=== PATIENT | female | born 1970 | race Hispanic/Latino ===

== ENCOUNTER 2016-10-13 15:35 | Emergency (ER) | payer SELFPAY ==
[2016-10-13] MEDS ORDERED: IBUPROFEN 600 MG TAB PO ONE (16:22)
--- NOTE | 2016-10-13 17:19 | EDPHY ---
H & P Smoking Status: Never smoked Time Seen by Provider: 10/13/16 16:30 HPI/ROS: CHIEF COMPLAINT: right facial swelling HISTORY OF PRESENT ILLNESS: 46-year-old female presents emergency department complaining increased right-sided facial swelling. Patient was seen by a dentist yesterday and prescribed 10 day course of amoxicillin prior to her appointment that is made for a tooth extraction. Patient developed pain in this right upper molar 1 week ago. Patient was prescribed amoxicillin 3 times a day, she took 2 doses yesterday and has had to today so far. She denies fevers or chills, reports no pain. She is concerned as she woke up this morning and had mild swelling to the right side of her face. Patient denies difficulty opening her mouth. No pain into her neck, no sore throat, no chest pain or shortness of breath. (Renée Santiago) Physical Exam: General: Alert, nontoxic. ENT: Tympanic membranes clear, external auditory canal, external ear and surrounding soft tissue including over the mastoid unremarkable. Nasopharynx is not injected, there is no rhinorrhea. Oropharynx without erythema, poor dental hygiene, no dental abscess. There is no exudate. No tonsillar hypertrophy. No asymmetry. The uvula is midline. No elevation of tongue. There is no hoarseness. No drooling, patient has good control of their oral secretions. No trismus. No stridor. Cardiac: Regular rate and rhythm. Respiratory: Lungs clear to auscultation bilaterally. Neurological: no meningismus. Skin: No rashes. (Renée Santiago) Constitutional: Initial Vital Signs Temperature (C) 36.9 C 10/13/16 15:43 Heart Rate 66 10/13/16 15:43 Respiratory Rate 16 10/13/16 15:43 Blood Pressure 119/75 10/13/16 15:43 O2 Sat (%) 97 10/13/16 15:43 O2 Delivery Mode Room Air Allergies/Adverse Reactions: No Known Allergies Allergy (Unverified 10/13/16 15:41) Home Medications: Medication Instructions Recorded AMOXICILLIN 10/13/16 MDM/Departure - MDM Medications Given: Discontinued Medications Ibuprofen (Motrin) 600 mg PO EDNOW ONE Stop: 10/13/16 16:23 Last Admin: 10/13/16 16:23 Dose: 600 mg ED Course/Re-evaluation: 46-year-old female with known dental abscess presents with facial swelling. She started on amoxicillin yesterday by her dentist and has an appointment to get this tooth removed. There is no evidence of orbital or periorbital cellulitis, mild right-sided facial swelling, no obvious abscess that can be drained. The patient has no fevers, has no pain. She is instructed to finish her antibiotics, take ibuprofen, warm compresses and I have given her strict return precautions for worsening symptoms. (Renée Santiago) The patient was evaluated and managed by the Physician Mechanical Systems Designer/ Nurse Practitioner. My co-signature indicates that I have reviewed this chart and I agree with the findings and plan of care as documented. I am the secondary supervising physician. (Karishma Frey) Differential Diagnosis: Diagnosis considered but not limited to dental abscess, orbital cellulitis, preseptal cellulitis (Renée Santiago) - Depart Disposition: Home, Routine, Self-Care Clinical Impression: Dental abscess Condition: Good Instructions: Dental Abscess (ED) Additional Instructions: Continue taking your antibiotics as prescribed. Take 600 mg of ibuprofen every 8 hours with food for 5 days. Warm compresses to your face 5 times a day for 5 minutes. Return to the emergency department for worsening swelling, fevers, vomiting, new symptoms or concerns. Follow-up with your dentist as scheduled. Continue con lyman antibiotico recetado. TOme 600 mg de ibuprofen cada 8 horas con comida por 5 mitchell. Parches calientitos en lyman jaelyn 5 veces al jorge por 5 minutos. Regrese a la jw de emergencia si empeora la inchazon, fiebres, vomito, nuevos sintomas o preocupaciones. Kem [address] de seguimiento con lyman dentista. Referrals: NONE *PRIMARY CARE P,. [Primary Care Provider] - As per Instructions Print Language: Albanian
[2016-10-13 17:47] VITALS: BP 145/78; PULSE 81; RESP 18; TEMP 97.7; O2SAT 98
== END 2016-10-13 17:47 | disposition home or self-care (01) ==
DX: K04.7 Periapical abscess without sinus (principal)

== ENCOUNTER 2017-10-31 01:02 | Emergency (ER) | payer SELFPAY ==
--- NOTE | 2017-10-31 01:14 | EDPHY ---
H & P Stated Complaint: neck pain x 2 days Time Seen by Provider: 10/31/17 01:14 HPI/ROS: HPI CHIEF COMPLAINT: Neck pain. HISTORY OF PRESENT ILLNESS: 47-year-old female, very pleasant, no significant medical history she presents emergency room with neck pain. She has had this been present for 2 days. The pain is located at the base of her occiput. It is worse when she turns her head to the left. States it feels very tense and tight. She denies any recent injury or trauma. Denies neck manipulation. Denies headache. The pain is reproducible on exam specially when you touch the base of her occiput at the how high C-spine region. Also worse when she turns her head to the left better when she turns her head to the right. No focal numbness or tingling no arm weakness, normal barker peeler strength. Denies trauma. No fever. Denies stiff neck. Denies headache. She does state that she had this about 2 weeks ago went saw her primary care doctor was given some kind of medication helps with stress that helped with her neck discomfort. Additionally she has been taking ibuprofen she took a dose this morning it helps briefly for few hours and then the discomfort returns. Denies any chest pain or shortness of breath denies pleuritic pain. Past Medical History: Denies medical history Past Surgical History: Denies surgical history Social History: Denies daily use of drugs alcohol tobacco. Family History: Noncontributory ROS REVIEW OF SYSTEMS: A comprehensive 10 point review of systems is otherwise negative aside from elements mentioned in the history of present illness. Exam Constitutional triage nursing summary reviewed, vital signs reviewed, awake/ alert. Eyes normal conjunctivae and sclera, EOMI, PERRLA. HENT neck exam: No midline cervical spine pain or step-offs, mild tender palpation at the base of the occiput paravertebral of the high C-spine, additionally with range of motion of the head to the left active range of motion it causes her discomfort, with active range of motion to the right LEs discomfort, normal barker peeler strength, no arm weakness, no referred pain, no numbness or tingling, moist mucus membranes, no epistaxis, neck supple/ no meningismus, no raccoon eyes. Respiratory clear to auscultation bilaterally, normal breath sounds, no respiratory distress, no wheezing. Cardiovascular rate normal, regular rhythm, no murmur, no edema, distal pulses normal. Gastrointestinal soft, non-tender, no rebound, no guarding, normal bowel sounds, no distension, no pulsatile mass. Genitourinary no CVA tenderness. Musculoskeletal no midline vertebral tenderness, full range of motion, no calf swelling, no tenderness of extremities, no meningismus, good pulses, neurovascularly intact. Skin pink, warm, & dry, no rash, skin atraumatic. Neurologic awake, alert and oriented x 3, AAOx3, moves all 4 extremities equally, motor intact, sensory intact, CN II-XII intact, normal cerebellar, normal vision, normal speech. Psychiatric normal mood/affect. Heme/Lymph/Immune no lymphadenopathy. Differential Diagnosis: Includes but is not limited to in a particular order cervical strain, torticollis, muscle spasm, disc herniation, annular tear, degenerative joint disease, doubt meningitis given history and physical exam review of systems. Medical Decision Making: Plan for this patient IV establishment with IV fluid bolus, IV Toradol 15 mg IV for pain control, IV Valium 2.5 mg for muscle spasm, basic blood work, CT cervical spine without contrast and re-evaluate. Re-evaluation: CT cervical spine without contrast called to me by Dr. Torres. Negative for acute abnormality. 0250: Patient re-evaluated this time. Patient resting comfortably no acute distress. CT cervical spine shows no evidence of acute abnormality. Patient feels much better after IV Valium and IV Toradol. She is resting comfortably. On re-examination she does have full range of motion of her neck left right right to left without any significant pain. No radicular symptoms. Denies any numbness or tingling or focal weakness. Feels much better after IV Valium IV Toradol. Prescription will be given for Valium and ibuprofen. She understands Valium can make her sleepy and she cannot work or drive while taking this. She should follow up with primary care doctor. Additionally if her neck continues to bother her have further pain she return emergency room she understands. Source: Patient - Personal History LMP (Females 10-55): 22-28 Days Ago Current Tetanus/Diphtheria Vaccine: Yes - Medical/Surgical History Hx Asthma: No Hx Chronic Respiratory Disease: No Hx Diabetes: No Hx Cardiac Disease: No Hx Renal Disease: No Hx Cirrhosis: No Hx Alcoholism: No Hx HIV/AIDS: No Hx Splenectomy or Spleen Trauma: No Other PMH: denies - Social History Smoking Status: Never smoked Constitutional: Initial Vital Signs Temperature (C) 36.5 C 10/31/17 01:06 Heart Rate 79 10/31/17 01:06 Respiratory Rate 20 10/31/17 01:06 Blood Pressure 119/69 10/31/17 01:06 O2 Sat (%) 96 10/31/17 01:06 O2 Delivery Mode Room Air Allergies/Adverse Reactions: No Known Allergies Allergy (Unverified 10/31/17 01:05) Home Medications: Medication Instructions Recorded Diazepam [Valium 5 MG (*)] 5 mg PO BID PRN #7 tab 10/31/17 RX: Ibuprofen [Motrin (*)] 800 mg PO Q6-8PRN #10 tab 10/31/17 Medical Decision Making - Data Points Laboratory Results: Laboratory Results 10/31/17 01:40 10/31/17 01:40 10/31/17 10/31/17 01:40 01:40 WBC 7.20 10^3/uL 10^3/uL (3.80-9.50) RBC 4.38 10^6/uL 10^6/uL (4.18-5.33) Hgb 13.8 g/dL g/dL (12.6-16.3) Hct 39.8 % % (38.0-47.0) MCV 90.9 fL fL (81.5-99.8) MCH 31.5 pg pg (27.9-34.1) MCHC 34.7 g/dL g/dL (32.4-36.7) RDW 12.2 % % (11.5-15.2) Plt Count 183 10^3/uL 10^3/uL (150-400) MPV 11.9 fL H fL (8.7-11.7) Neut % (Auto) 58.9 % % (39.3-74.2) Lymph % (Auto) 32.9 % % (15.0-45.0) Redwood % (Auto) 6.3 % % (4.5-13.0) Eos % (Auto) 1.5 % % (0.6-7.6) Baso % (Auto) 0.3 % % (0.3-1.7) Nucleat RBC Rel Count 0.0 % % (0.0-0.2) Absolute Neuts (auto) 4.24 10^3/uL 10^3/uL (1.70-6.50) Absolute Lymphs (auto) 2.37 10^3/uL 10^3/uL (1.00-3.00) Absolute Monos (auto) 0.45 10^3/uL 10^3/uL (0.30-0.80) Absolute Eos (auto) 0.11 10^3/uL 10^3/uL (0.03-0.40) Absolute Basos (auto) 0.02 10^3/uL 10^3/uL (0.02-0.10) Absolute Nucleated RBC 0.00 10^3/uL 10^3/uL (0-0.01) Immature Gran % 0.1 % % (0.0-1.1) Immature Gran # 0.01 10^3/uL 10^3/uL (0.00-0.10) Sodium 139 mEq/L mEq/L (135-145) Potassium 4.2 mEq/L mEq/L (3.3-5.0) Chloride 109 mEq/L mEq/L (97-110) Carbon Dioxide 22 mEq/l mEq/l (22-31) Anion Gap 8 mEq/L mEq/L (8-16) BUN 13 mg/dL mg/dL (7-23) Creatinine 0.5 mg/dL L mg/dL (0.6-1.0) Estimated GFR > 60 Glucose 102 mg/dL H mg/dL (70-100) Calcium 9.0 mg/dL mg/dL (8.5-10.4) Medications Given: Discontinued Medications Diazepam (Valium) 2.5 mg IVP EDNOW ONE Stop: 10/31/17 01:25 Last Admin: 10/31/17 01:37 Dose: 2.5 mg Sodium Chloride (Ns) 1,000 mls @ 0 mls/hr IV EDNOW ONE; Wide Open PRN Reason: Protocol Stop: 10/31/17 01:25 Last Admin: 10/31/17 01:37 Dose: 1,000 mls Ketorolac Tromethamine (Toradol) 15 mg IVP EDNOW ONE Stop: 10/31/17 01:25 Last Admin: 10/31/17 01:38 Dose: 15 mg Departure - Departure Disposition: Home, Routine, Self-Care Clinical Impression: Torticollis Condition: Good Instructions: Spasmodic Torticollis (ED) Additional Instructions: 1. Return emergency room if you have worsening pain questions or concerns 2. Valium for muscle spasm this can make you sleepy. 3. Ibuprofen for pain control. Referrals: NONE *PRIMARY CARE P,. [Primary Care Provider] - As per Instructions [facility],. [Clinic] - As per Instructions Prescriptions: Diazepam [Valium 5 MG (*)] 5 mg PO BID PRN #7 tab PRN Reason: Spasms RX: Ibuprofen [Motrin (*)] 800 mg PO Q6-8PRN #10 tab
[2017-10-31] MEDS ORDERED: NS 1,000 ML IV ONE (01:24)
[2017-10-31] MEDS ORDERED: DIAZEPAM 5 MG/ML 1 ML SYR IVP ONE (01:24)
[2017-10-31] MEDS ORDERED: KETOROLAC 15 MG/1 ML SDV IVP ONE (01:24)
[2017-10-31 02:04] LABS: PLATELET COUNT 183 10^3/uL (150-400)
[2017-10-31 02:57] VITALS: BP 115/72
== END 2017-10-31 02:57 | disposition home or self-care (01) ==
DX: M43.6 Torticollis (principal); E86.9 Volume depletion, unspecified
CPT/HCPCS: 96374; J1885; J3360